=== PATIENT | male | born 1980 | race Caucasian/White ===

== ENCOUNTER 2020-06-17 06:46 | Emergency (ER) | payer OTHER, SELFPAY ==
[2020-06-17] MEDS ORDERED: Nitroglycerin 0.4 MG TAB 1 EACH ONE ×2 (07:33→07:36)
[2020-06-17] MEDS ORDERED: Aspirin 325 MG TAB ONE (07:33)
[2020-06-17 07:35] LABS: #Basophils 0.1 thou/uL (0.0-0.2); #Eosinphils 0.1 thou/uL (0.0-0.7); #Lymphocytes 2.9 thou/uL (1.20-3.40); #Monocytes 0.7 thou/uL (0.11-0.59); %Basophils 0.9 % (0.0-1.0); %Eosinophils 0.8 % (0.0-10.0); %Lymphocytes 29.6 % (21.0-51.0); %Neutrophils 61.8 % (42.0-75.0); Mean Corpuscular HGB CONC 32.9 g/dL (32.0-36.0); Mean Corpuscular Hemoglobin 27.7 pg (27.0-31.0); Mean Corpuscular Volume 84.2 fL (78.0-98.0); Mean Platelet Volume 6.8 fL (7.4-10.4); Platelet Count 396 thou/uL (130-400); RBC Distribution Width 12.1 % (11.5-14.5); Red Blood Cell (RBC) Count 6.14 mill/uL (4.70-6.10); White Blood Cell (WBC) Count 9.7 thou/uL (4.8-10.8)
[2020-06-17 07:49] LABS: ALT (SGPT) 32 U/L (8-55); AST (SGOT) 31 U/L (5-34); Albumin 4.8 g/dL (3.5-5.0); Alkaline Phosphatase 83 U/L (40-110); Anion Gap 17 mmol/L (10-20); BUN (Urea Nitrogen) 12 mg/dL (8.9-20.6); Bilirubin, Total 0.6 mg/dL (0.2-1.2); Calc. Creatinine Clearance 0 mL/min (70-130); Calcium 9.8 mg/dL (7.8-10.44); Carbon Dioxide 27 mmol/L (22-29); Chloride 99 mmol/L (98-107); Estimated GFR-MDRD Greater than 90; Globulin 4.7 g/dL (2.4-3.5); Glucose 87 mg/dL (70-105); Potassium 4.1 mmol/L (3.5-5.1); Protein, Total 9.5 g/dL (6.0-8.3); Sodium 139 mmol/L (136-145)
--- NOTE | 2020-06-17 09:21 | CT ---
Exam: CT angiogram of the chest HISTORY: Chest pain COMPARISON: None TECHNIQUE: CT angiogram of the chest is performed in the axial plane. Three-dimensional reformatted i mages are submitted for interpretation FINDINGS: Overall evaluation is limited due to motion degradation. Mediastinum: No mass, lymphadenopathy or hematoma. HEART: Normal size. No significant pericardial fluid. Aorta: No aneurysm or dissection Upper solid abdominal viscera: No abnormality enhancement. Trachea and central bronchi: Patent Pleural spaces: No effusion Lung parenchyma: No masses or consolidation. Pneumothorax: None Osseous structures: No lytic or blastic lesions Pulmonary arteries: Adequate contrast opacification pulmonary arterial system to the level of the lob ar arteries. No filling defect to suggest pulmonary embolism is limited evaluation of the segmental and subsegmental arteries. IMPRESSION: 1. Limited evaluation due to motion degradation 2. No evidence of pulmonary artery embolism to the level of the lobar arteries.
[2020-06-17] MEDS ORDERED: Ketorolac Tromethamine 30 MG/ML VIAL ONE (09:22)
[2020-06-17] MEDS ORDERED: Lidocaine Viscous Sol 2% 15 ml UD Cup ONE (09:22)
[2020-06-17] MEDS ORDERED: Mag-Al Plus 1200 MG/1200 MG/120 MG/30 ML UDCUP ONE (09:22)
--- NOTE | 2020-06-17 10:49 | RAD ---
PORTABLE CHEST: Date: 06/17/2020 HISTORY: Chest pain. FINDINGS: Lungs are clear of infiltrate. Heart and mediastinum appear normal. IMPRESSION: No acute process. POS: [facility]
[2020-06-17] MEDS ORDERED: Iopamidol 370 76% 125 ML VIAL FS ONE (10:55)
[2020-06-17] MEDS ORDERED: Sodium Chloride 0.9% 100 ML BAG ONE (10:55)
== END 2020-06-17 09:50 ==
LOC: MADERS 06:46
DX: R07.9 Chest pain, unspecified (principal); I10 Essential (primary) hypertension
CPT/HCPCS: 71045; 71275; 80053; 83880; 84443; 84484; 85025; 85379; 93005; 96374; J1885; J3490; Q9967